=== PATIENT | female | born 1995 | race Caucasian/White ===

== ENCOUNTER → 2018-08-03 10:00 | Outpatient (CLI) | payer OTHER, SELFPAY | DX: Z23 Encounter for immunization (principal) | CPT/HCPCS: 90471; 90686 ==

== ENCOUNTER 2022-04-17 16:57 | Emergency (ER) | payer OTHER, SELFPAY ==
[2022-04-17 17:34] VITALS: BP 151/82; PULSE 82; RESP 15; TEMP 35.9; O2SAT 99; BMI 40.3
--- NOTE | 2022-04-17 19:30 | ED_ITS ---
HPI - Extremity Problem <Jim Flynn PA-C - Last Filed: 04/17/22 19:43> General Chief complaint: Extremity Problem,Nontraumatic Stated complaint: rt leg pain Time Seen by Provider: 04/17/22 19:11 Source: family Mode of arrival: Wheelchair History of Present Illness HPI Narrative: This is a 26-year-old female presenting to the emergency department due to pain acute on chronic lower back pain with radiation down her right lower extremity. States she feels numbness and tingling in the right lower extremity as well. Patient states that she has a known disc herniation at L4-5 that she has seen her primary care provider about. Patient states that she ?just needs something for the pain?. Denies any urinary or bowel incontinence, saddle paresthesias, or any other concerning signs or symptoms. Denies any acute injury states the pain is ?horrible?. Related Data Home Medications Medication Instructions Recorded Confirmed albuterol sulfate 90 mcg/actuation 2 puff INHALATION Q6H PRN 06/07/18 06/07/18 aerosol inhaler (ProAir HFA) lorazepam 0.5 mg tablet (Ativan) 0.5 mg PO BEDTIME PRN 06/07/18 06/07/18 sertraline 25 mg tablet (Zoloft) 25 mg PO DAILY 06/07/18 06/07/18 Previous Rx's Medication Instructions Recorded ondansetron 8 mg disintegrating 8 mg PO Q8H PRN #30 tab 06/07/18 tablet (Zofran ODT) methylprednisolone 4 mg tablets in 4 mg PO DAILY #21 ea 04/17/22 a dose pack Allergies Allergy/AdvReac Type Severity Reaction Status Date / Time ceftriaxone [From Rocephin] Allergy hives Verified 04/17/22 17:34 cephalexin [From Keflex] Allergy difficulty Verified 04/17/22 17:34 breathing doxycycline Allergy hives and Verified 04/17/22 17:34 itchy mouth Penicillins Allergy Anaphylaxis Verified 04/17/22 17:34 Review of Systems <Jim Flynn PA-C - Last Filed: 04/17/22 19:43> Review of Systems Narrative: GENERAL: Denies chills, fatigue, malaise, fever, sweats. HEENT: Denies sinus pain, ear pain, sore throat, difficulty swallowing, dizziness. RESPIRATORY: Denies dyspnea, cough, wheezing, hemoptysis, sputum. CARDIOVASCULAR: Denies chest pain, palpitations, orthopnea, edema, GASTROINTESTINAL: Denies nausea, vomiting, abdominal pain, diarrhea, constipation, melena. : Denies dysuria, frequency, incontinence, hematuria, urinary retention. MUSCULOSKELETAL: Back pain SKIN: Denies rash, skin lesions, or other NEUROLOGIC: Denies weakness, headache, numbness, change in speech, confusion, seizures, incoordination. PSYCHIATRIC: No concerning psychosocial issues. 12 point review of systems is negative except for those stated above Patient History <Jim Flynn PA-C - Last Filed: 04/17/22 19:43> Social History Smoking Status: Never smoker alcohol intake: current Smoking Status: Never smoker alcohol intake frequency: holidays/special occasions only Substance Use Type: does not use Exam <Jim Flynn PA-C - Last Filed: 04/17/22 19:43> Narrative Exam Narrative: GENERAL: Well-developed patient, in mild distress. HEAD: Atraumatic. Normocephalic. EYES: Pupils equal round and reactive. Extraocular motions intact. No scleral icterus. No injection or drainage. ENT: Nose without bleeding, purulent drainage. Throat without erythema, tonsillar hypertrophy or exudate. Airway patent. NECK: Trachea midline. Non tender CARDIOVASCULAR: Regular rate and rhythm without murmurs, gallops, or rubs. RESPIRATORY: Clear to auscultation. Breath sounds equal bilaterally. No wheezes, rales, or rhonchi. GASTROINTESTINAL: Abdomen soft, non-tender, nondistended. EXTREMITIES: No edema or joint tenderness. BACK: Tenderness to palpation to the right lumbar area NEURO: AOx3. SKIN: No rash or erythema of visible areas Initial Vital Signs Initial Vital Signs: Vital Signs Temperature 96.7 F L 04/17/22 17:34 Pulse Rate 82 04/17/22 17:34 Respiratory Rate 15 04/17/22 17:34 Blood Pressure 151/82 H 04/17/22 17:34 Pulse Oximetry 99 04/17/22 17:34 <Yesika Bryson DO - Last Filed: 04/18/22 04:02> Initial Vital Signs Initial Vital Signs: Vital Signs Temperature 96.7 F L 04/17/22 17:34 Pulse Rate 82 06/02/22 17:34 Respiratory Rate 15 04/17/22 17:34 Blood Pressure 151/82 H 04/17/22 17:34 Pulse Oximetry 99 04/17/22 17:34 Course <Jim Flynn PA-C - Last Filed: 04/17/22 19:43> Vital Signs Vital signs: Vital Signs - 8 hr 04/17/22 17:34 Temperature 96.7 F L Pulse Rate 82 Respiratory Rate 15 Blood Pressure 151/82 H Pulse Oximetry 99 <Yesika Bryson DO - Last Filed: 04/18/22 04:02> Vital Signs Vital signs: Vital Signs - 8 hr 04/17/22 17:34 Temperature 96.7 F L Pulse Rate 82 Respiratory Rate 15 Blood Pressure 151/82 H Pulse Oximetry 99 MDM - Extremity (Nontraumatic) <Jim Flynn PA-C - Last Filed: 04/17/22 19:43> MDM Narrative Medical decision making narrative: This is a 26-year-old female presents to the emergency department due to acute on chronic lower back pain secondary to a known L4-5 disc herniation. Patient did report some numbness and tingling in the right lower extremity and offered course of possible MRI for further evaluation for new changes but patient states that she would prefer to have the MRI performed through her primary care provider for insurance purposes. Patient states that she is already taking a large amount of ibuprofen and Tylenol [id number] and states that ?muscle relaxants do nothing for me. Toradol and a prescription for muscle relaxer declined patient was agreeable to a Medrol Dosepak for treatment until she is able follow-up with the primary care provider in 1 week. Patient states that she ?knows I need surgery? but is hesitant to pursue this route until she has ?better job security?. Discharge Plan Departure Patient Disposition: Home Clinical Impression: Low back pain radiating to right leg Instructions: Low Back Pain Activity Restrictions/Additional Instructions: Thank you for coming to the [facility] Emergency Department today. I am sorry that you are experiencing the back pain that you have been experiencing for some time. Please continue to use ibuprofen and Tylenol as recommended to help with your pain. Also recommend light stretching and light activity help loosen muscles. As we discussed you may qualify for MRI to your primary care provider due to your right leg numbness and tingling. I recommend you follow through with this route. The Medrol Dosepak may help with the symptoms into see them on Thursday. I hope you feel better soon. Prescriptions: New methylprednisolone 4 mg tablets,dose pack 4 mg PO DAILY Qty: 21 0RF No Action lorazepam [Ativan] 0.5 mg tablet 0.5 mg PO BEDTIME PRN0RF sertraline [Zoloft] 25 mg tablet 25 mg PO DAILY 0RF albuterol sulfate [ProAir HFA] 90 mcg/actuation HFA aerosol inhaler 2 puff INHALATION Q6H PRN0RF ondansetron [Zofran ODT] 8 mg tablet,disintegrating 8 mg PO Q8H PRN (Reason: nausea and vomiting) Qty: 30 0RF Visit Report Forms: Patient Portal/API <Yesika Bryson DO - Last Filed: 04/18/22 04:02> Cosign ED Attending Claudine Attestation: I was immediately available in the department for consultation. Documentation has been reviewed. I agree with assessment and plan.
--- NOTE | 2022-04-17 19:44 | PC.NURSE ---
pt states she has been diagnosed with herniated disc in L4 and L5 since Dec 2020. She knows she needs to have surgery, has appointment with Dr. Polk for this July (soonest available) also has appointment with her PCP next Thursday for pain control. Pt moved here from [place] and the driving and lifting of things has exacerbated her back pain and she now reports tingling and numbness down into her toes. Pt using icy-hot at home and lidocaine patches. she is hoping we can help manage her pain until her appt on thursday.
== END 2022-04-17 19:51 | disposition home or self-care (01) ==
PROVIDERS: Emergency Provider Physician Assistant Medical
DX: M54.50 Low back pain, unspecified (principal)
CPT/HCPCS: 99281

== ENCOUNTER → 2022-07-28 13:51 | Outpatient (CLI) | payer OTHER, SELFPAY ==
--- NOTE | 2022-07-28 13:52 | DI.RAD.S_ITS ---
PROCEDURE: XR LUMBAR SPINE MIN 4V INDICATIONS: BACK PAIN TECHNIQUE: 5 views of the lumbar spine were acquired, including bilateral oblique views. COMPARISON: None. FINDINGS: Bones: 5 nonrib-bearing vertebrae are present. There is significant levoscoliosis of thoracolumbar spine partially visualized on this study.. No vertebral body compression fractures. No suspicious bony lesions. Soft tissues: Overlying bowel gas pattern is normal. No suspicious soft tissue calcifications. Oblique images: No pars defects. IMPRESSION: Moderate levoscoliosis of thoracolumbar spine incompletely visualized on this study. No compression fracture or significant listhesis. No gross pars defects. Dictated by: Gopal Reed M.D. on 07/28/2022 at 16:03 Approved by: Gopal Reed M.D. on 07/28/2022 at 16:04
== END ==
PROVIDERS: PCP Student in an Organized Health Care Education/Training Program; Referring Provider Physical Medicine & Rehabilitation; Visit Provider Physical Medicine & Rehabilitation
DX: M54.9 Dorsalgia, unspecified (principal); M41.86 Other forms of scoliosis, lumbar region; M51.26 Other intervertebral disc displacement, lumbar region; M54.16 Radiculopathy, lumbar region; F40.298 Other specified phobia; E66.01 Morbid (severe) obesity due to excess calories; Z68.42 Body mass index [BMI] 45.0-49.9, adult
CPT/HCPCS: 72110; 99214

== ENCOUNTER 2022-08-28 13:49 | Outpatient (CLI) | payer OTHER, SELFPAY ==
[2022-08-28] VITALS (8 sets, daily range): BP systolic 134–172; BP diastolic 85–101; PULSE 87–111; RESP 14–24; TEMP 36.6; O2SAT 97–99
--- NOTE | 2022-08-28 13:52 | DI.RAD.S_ITS ---
PROCEDURE: PAIN L INTERLAMINAR/CAUDAL INJ INDICATIONS: SPONDYLOSIS COMPARISON: None. FINDINGS: Fluoroscopic spot filming was performed to verify placement of spinal needles at the L4-5 level(s), as labeled on the films. Appropriate location(s) of the needle tip(s) was confirmed by injection of iodinated contrast. IMPRESSION: Fluoro guidance was provided intraoperatively for right L4-5 translaminar epidural steroid injection performed by the ordering physician. Dictated by: Gopal Reed M.D. on 08/28/2022 at 16:42 Approved by: Gopal Reed M.D. on 08/28/2022 at 16:45
[2022-08-28] MEDS: MIDAZOLAM 2 MG/2 ML VIAL IV (14:14)
[2022-08-28] MEDS: IOPAMIDOL 15 ML VIAL 3 ML INJ (14:19)
[2022-08-28] MEDS: DEXAMETHASONE 10 MG/ML VIAL 20 MG INJ (14:19)
[2022-08-28] MEDS: BUPIVACAINE 0.25% (PF) VIAL 2 ML INJ (14:19)
[2022-08-28] MEDS: BETAMETHASONE 30 MG/5 ML MDV 6 MG INJ (14:21)
--- NOTE | 2022-08-28 14:31 | P.PCN_ITS ---
Date/Time/Diagnoses Date of procedure: 08/28/22 Time of procedure: 14:31 Pre-procedure diagnosis: 1. HNP WITH RADICULAR FEATURES, 2. MULTILEVEL CENTRAL STENOSIS, Post-procedure diagnosis: same Procedure Notes Procedure: 1. FLUOROSCOPICALLY GUIDED CONTRAST CONTROLLED INTERLAMINAR EPIDURAL STEROID INJECTION -L4/5 Indications: Lavon is referred by Dr. Mike for treatment of Bilateral Foraminal Stenosis R>L LE symptoms. Physician: Esteban Clark Total Fluoroscopy time (seconds): 6 Total sedation minutes: 9 Complications: none Procedure in detail & Post-procedure care: FINDINGS Multilevel Central Spinal Stenosis with Nerve Root Compression DESCRIPTION OF PROCEDURE Fluoroscopically guided, contrast-controlled L4/5 translaminar epidural steroid injection. Following review of allergy and review of potential side effects and complications, including, but not necessarily limited to, infection, allergic reaction, local tissue breakdown, temporary as well as permanent nerve injury, paralysis, stroke and possible , the patient indicated that the patient understood and agreed to proceed. An informed consent document was signed by the patient, witnessed by a nurse, and placed in the patient's chart. Additionally, other treatment options including modalities, medications, and physical therapy were reviewed with the patient. After review of previous anaesthesic history and IV conscious sedation the patient was deemed safe to proceed with today?s procedure with IV conscious sedation as ASA class II designation. Safety time-out was performed to confirm patient ID, procedure to be performed and site of procedure. IV sedation was accomplished with a combination of 2mg of Versed was administered by the RN after DO order, titrated to patient comfort during the course of the procedure while the patient remained responsive to all verbal commands In the prone position, following sterile prep and drape of the lumbar region, the L4/5 translaminar space was identified fluoroscopically. The skin was anesthetized via a 25-gauge, 1.5inch needle with 1% lidocaine solution. At this point, a 22-gauge short bevel spinal needle was atraumatically introduced and advanced under fluoroscopic guidance into the region of the L4/5 translaminar space. Depth was confirmed on lateral view. Radiological data, including multiple fluoroscopic views of the lumbar spine, reveal a spinal needle at the L4/5 translaminar space. Lateral views then show placement of the needle in the epidural space. Subsequent views show contrast material flowing superiorly and inferiorly in the epidural space. No vascular or intrathecal uptake is observed. At this point, using loss of resistance technique with saline and air, the epidural space was entered. This was confirmed following negative aspiration with injection of approximately 1.5cc of Isovue 200, showing excellent epidural flow without vascular or intrathecal uptake. At this point, 1cc of 1% lidocaine solution combined with 3cc or 20mg of dexamethasone and 6mg betamethasone was injected without incident. The patient tolerated the procedure well without signs or symptoms of complications prior to transfer to the recovery area continued monitoring without incident. The patient was then transferred to the recovery area where they were observed for an appropriate period of time after the injection. The patient reported a VAS score of 6 prior to the procedure and a post- procedure VAS of 0. POST OP INSTRUCTIONS The patient was provided a Pain Log to continue to record their response to the target-specific procedure prior to follow-up visit with their referring physician. Additionally, specific post-injection care instructions and a contact number to our office were provided if concerns arise regarding possible complications associated with the procedure are suspected.
== END 2022-08-28 14:47 | disposition home or self-care (01) ==
PROVIDERS: PCP Student in an Organized Health Care Education/Training Program; Referring Provider Physical Medicine & Rehabilitation; Visit Provider Physical Medicine & Rehabilitation
DX: M51.16 Intervertebral disc disorders with radiculopathy, lumbar region (principal); M48.061 Spinal stenosis, lumbar region without neurogenic claudication
CPT/HCPCS: 62323; J0702; J1100; J2250; J3490

== ENCOUNTER 2022-12-18 10:39 | Outpatient (CLI) | payer OTHER, SELFPAY ==
[2022-12-18] VITALS (9 sets, daily range): BP systolic 138–155; BP diastolic 77–110; PULSE 70–85; RESP 11–20; TEMP 36.3; O2SAT 98–100
--- NOTE | 2022-12-18 10:40 | DI.RAD.S_ITS ---
PROCEDURE: PAIN L/S TRANSFORAMINAL INJECT INDICATIONS: SPONDYLOSIS COMPARISON: [facility], XA, PAIN L INTERLAMINAR/CAUDAL INJ, 08/28/2022, 14:18. [facility], CR, XR LUMBAR SPINE MIN 4V, 07/28/2022, 14:01. [facility][1], RG, MRI L-SPINE W/O CONTRAST, 07/23/2022, 7:36. FINDINGS: Fluoroscopic spot filming was performed to verify placement of a spinal needle at the L4-L5 level, as labeled on the films. Appropriate location of the needle tip was confirmed by injection of iodinated contrast. IMPRESSION: Intraprocedural examination within normal limits. Dictated by: Mike Glez M.D. on 12/18/2022 at 11:47 Approved by: Mike Glez M.D. on 12/18/2022 at 11:48
[2022-12-18] MEDS: MIDAZOLAM 2 MG/2 ML VIAL IV (11:08)
[2022-12-18] MEDS: IOPAMIDOL 15 ML VIAL 3 ML INJ (11:14)
[2022-12-18] MEDS: BETAMETHASONE 30 MG/5 ML MDV 6 MG INJ (11:14)
[2022-12-18] MEDS: DEXAMETHASONE 10 MG/ML VIAL 20 MG INJ (11:15)
[2022-12-18] MEDS: BUPIVACAINE 0.25% (PF) VIAL 2 ML INJ (11:16)
--- NOTE | 2022-12-18 11:23 | P.PCN_ITS ---
Date/Time/Diagnoses Date of procedure: 12/18/22 Time of procedure: 11:23 Pre-procedure diagnosis: 1. FORAMINAL STENOSIS WITH LE SYMPTOMS Post-procedure diagnosis: same Procedure Notes Procedure: 1. FLUOROSCOPICALLY GUIDED CONTRAST CONTROLLED TRANSFORAMINAL EPIDURAL STEROID INJECTION - RIGHT L4/5 TFESI Indications: Jose Manuel is referred by Dr. Mike for treatment of Foraminal Stenosis with Right LE Symptoms Physician: Esteban Clark Total Fluoroscopy time (seconds): 12 Total sedation minutes: 13 Complications: none Procedure in detail & Post-procedure care: FINDINGS Foraminal Nerve Root Compression secondary to disc disease and facet hypertrophy DESCRIPTION OF PROCEDURE Following review of allergy and review of potential side effects and complications, including, but not necessarily limited to, infection, allergic reaction, local tissue breakdown, stroke, temporary or permanent nerve injury, paralysis, and possible , the patient indicated that the patient understood and agreed to proceed. An informed consent document was signed by the patient, witnessed by a nurse, and placed in the patient's chart. Additionally, other treatment options including medications, modalities, and physical therapy were reviewed with the patient. After review of previous anaesthesic history and IV conscious sedation the patient was deemed safe to proceed with today?s procedure with IV conscious sedation as ASA class II designation. Safety time-out was performed to confirm patient ID, procedure to be performed and site of procedure. IV sedation was accomplished with a combination of 2mg of Versed was administered by the RN after DO order, titrated to patient comfort during the course of the procedure while the patient remained responsive to all verbal commands In the prone position following sterile prep and drape of the lumbar region, the right L4/5 posterior neuroforamen was identified fluoroscopically. The skin was anesthetized via a 25-gauge 1.5-inch needle with 1% lidocaine solution. At this point, a 25-gauge 3.5-inch spinal needle was atraumatically introduced and advanced under fluoroscopic guidance through the posterior right L4/5 neuroforamen to approximately the anterior aspect of the canal. Depth was confirmed on lateral view. Following negative aspiration, injection of approximately 1.5cc of Isovue 200 under live fluoroscopy in the AP view confirmed excellent flow along the nerve root, into the epidural space without vascular or intrathecal uptake observed Radiological data, including multiple fluoroscopic views of the lumbosacral spine, reveal a spinal needle at the right L4/5 posterior neuroforamen. Subsequent views show flow of contrast material flowing superiorly and inferiorly along the nerve root confirming epidural flow. Subsequently, a test dose of 1.5 cc of 1% lidocaine solution was administered and patient was observed for two minutes for signs or symptoms of complications, including abdominal pain, shortness of breath, bilateral upper or lower extremity weakness, nausea and vomiting, prior to steroid injection. At this point, a total of 3cc or 20mg of dexamethasone and 6mg of betamethasone was injected without incident. The procedure tolerated the procedure well without signs or symptoms of complications prior to transfer to the recovery area continued monitoring without incident. The patient was then transferred to the recovery area where they were observed for an appropriate time after the injection. The patient reported a VAS score of 9 prior to the procedure and a post- procedure VAS of 2. POST OP INSTRUCTIONS The patient was provided a Pain Log to continue to record their response to the target-specific procedure prior to follow-up visit with their referring physician. Additionally, specific post-injection care instructions and a contact number to our office were provided if concerns arise regarding possible complications associated with the procedure are suspected.
== END 2022-12-18 11:46 | disposition home or self-care (01) ==
LOC: RAD 10:40
PROVIDERS: PCP Student in an Organized Health Care Education/Training Program; Referring Provider Physical Medicine & Rehabilitation; Visit Provider Physical Medicine & Rehabilitation
DX: M48.061 Spinal stenosis, lumbar region without neurogenic claudication (principal); M51.16 Intervertebral disc disorders with radiculopathy, lumbar region
CPT/HCPCS: 64483; 99152; J0702; J1100; J2250; J3490

== ENCOUNTER 2023-07-30 07:14 | Emergency (ER) | payer OTHER, SELFPAY ==
--- NOTE | 2023-07-30 07:17 | ED.GENADULT ---
HPI - General Adult General Chief complaint: Upper Respiratory Symptoms Stated complaint: upper resp Time Seen by Provider: 07/30/23 07:16 Source: patient Mode of arrival: Ambulatory Limitations: no limitations History of Present Illness HPI narrative: 27-year-old female who is here for evaluation of a cough. No fevers. Has nonproductive cough. No chest pain. No history of asthma. He was like she would benefit from a breathing treatment. Related Data Home Medications Medication Instructions Recorded Confirmed ondansetron 4 mg disintegrating 4 mg PO QID PRN nausea and vomiting 11/24/22 04/06/23 tablet escitalopram oxalate 10 mg tablet 10 mg PO DAILY 04/06/23 04/06/23 lamotrigine 200 mg tablet 200 mg PO BID 04/06/23 04/06/23 Previous Rx's Medication Instructions Recorded tramadol 50 mg tablet 50 mg PO BID PRN pain #42 tabs 04/09/23 methocarbamol 500 mg tablet 500 mg PO TID #60 tabs 07/14/23 albuterol sulfate 90 mcg/actuation 2 puff inhalation Q4-6H PRN 07/30/23 aerosol inhaler (ProAir HFA) shortness of breath or wheezing #8.5 grams benznidazole 100 mg tablet 100 mg PO BID #20 tabs 07/30/23 Allergies Allergy/AdvReac Type Severity Reaction Status Date / Time ceftriaxone [From Rocephin] Allergy hives Verified 04/06/23 13:46 cephalexin [From Keflex] Allergy difficulty Verified 04/06/23 13:46 breathing doxycycline Allergy hives and Verified 04/06/23 13:46 itchy mouth Penicillins Allergy Anaphylaxis Verified 04/06/23 13:46 nystatin AdvReac Rash Verified 07/30/23 07:40 Review of Systems Constitutional Constitutional: Reports system reviewed and no additional complaints, except as documented Cardiovascular Cardiovascular: Reports system reviewed and no additional complaints, except as documented Respiratory Respiratory: Reports system reviewed and no additional complaints, except as documented Gastrointestinal Gastrointestinal: Reports system reviewed and no additional complaints, except as documented Integumentary/Breasts Skin/Breast: Reports system reviewed and no additional complaints, except as documented Patient History Medical History Herniated nucleus pulposus, L4-5 Lumbar radiculopathy Morbid obesity due to excess calories Needle phobia Surgical History H/O hand surgery History of tonsillectomy Family History Father Diabetes mellitus Mother Depression Anxiety Thyroid disease Grandmother Cancer Social History Smoking Status: Never smoker alcohol intake: current Smoking Status: Never smoker alcohol intake frequency: holidays/special occasions only Substance Use Type: does not use Exam Initial Vital Signs Initial Vital Signs: Vital Signs Temperature 98.3 F 07/30/23 07:28 Pulse Rate 90 07/30/23 07:28 Respiratory Rate 26 H 07/30/23 07:28 Blood Pressure 120/87 07/30/23 07:28 Pulse Oximetry 99 07/30/23 07:28 Oxygen Delivery Method Room Air 07/30/23 07:28 Resp Effort & Inspection: not labored and no respiratory distress Auscultation: rhonchi and wheezes Cardio Rate: regular rate Skin General: no rashes or lesions noted Neuro General: patient alert, patient awake, patient oriented x3 and moves all extremities Course Orders Ordered: Discontinued Medications Albuterol (Albuterol 2.5 Mg/3 Ml Neb (Adult)) 5 mg INH NOW ONE Stop: 07/30/23 07:17 Last Admin: 07/30/23 07:27 Dose: 5 mg Documented By: MARITA Benzonatate (Benzonatate 100 Mg Capsule) 100 mg PO NOW ONE Stop: 07/30/23 07:20 Vital Signs Vital signs: Vital Signs - 8 hr 07/30/23 07:30 07/30/23 07:28 Temperature 98.3 F Pulse Rate 102 H 90 Respiratory Rate 20 26 H Blood Pressure 120/87 Pulse Oximetry 98 99 Oxygen Delivery Method Room Air Room Air Oxygen Flow Rate 0 Fraction of Inspired Oxygen 21 Medical Decision Making MDM Narrative Medical decision making narrative: Low suspicion for pneumonia. No indication for antibiotics. Feels much better after eating treatment. Will discharge patient home Discharge Plan Departure Patient Disposition: Home Clinical Impression: Cough, Upper respiratory infection Instructions: Cough Activity Restrictions/Additional Instructions: Use the albuterol as needed same with the Oleg Daniels. Contact your primary doctor for follow-up. Prescriptions: New albuterol sulfate [ProAir HFA] 90 mcg/actuation HFA aerosol inhaler 2 puff inhalation Q4-6H PRN (Reason: shortness of breath or wheezing) Qty: 8.5 0RF benznidazole 100 mg tablet 100 mg PO BID Qty: 20 0RF No Action tramadol 50 mg tablet 50 mg PO BID PRN (Reason: pain) Qty: 42 1RF methocarbamol 500 mg tablet 500 mg PO TID Qty: 60 2RF ondansetron 4 mg tablet,disintegrating 4 mg PO QID PRN (Reason: nausea and vomiting) Patient Comments: DISSOLVE ONE TABLET BY MOUTH EVERY 6 HOURS NEEDED lamotrigine 200 mg tablet 200 mg PO BID Patient Comments: TAKE 1 TABLET BY MOUTH TWICE DAILY escitalopram oxalate 10 mg tablet 10 mg PO DAILY Referrals: Rosemarie Mike MD [Primary Care Provider] - Stand Alone Forms: Patient Portal/API
[2023-07-30 07:21] VITALS: PULSE 95; O2SAT 100
[2023-07-30] MEDS: ALBUTEROL 2.5 MG/3 ML NEB (ADULT) 5 MG INH (07:27)
[2023-07-30 07:28] VITALS: BP 120/87; PULSE 90; RESP 26; TEMP 36.8; O2SAT 99; BMI 44.4
[2023-07-30 07:30] VITALS: PULSE 102; RESP 20; O2SAT 98
[2023-07-30] MEDS: BENZONATATE 100 MG CAPSULE PO (07:42)
[2023-07-30 07:44] VITALS: PULSE 109; O2SAT 100
--- NOTE | 2023-07-30 07:47 | PC.NURSE ---
Patient is coughing less and states a huge improvement from the breathing treatment.
[2023-07-30 07:55] VITALS: BP 148/85; PULSE 97; RESP 20; O2SAT 100
== END 2023-07-30 07:55 | disposition home or self-care (01) ==
PROVIDERS: Emergency Provider Emergency Medicine; PCP Student in an Organized Health Care Education/Training Program
DX: J06.9 Acute upper respiratory infection, unspecified (principal); R05.9 Cough, unspecified
CPT/HCPCS: 94640; 99283; J7613

== ENCOUNTER → 2023-07-31 19:24 | Outpatient (CLI) | payer OTHER, SELFPAY ==
--- NOTE | 2023-07-31 19:24 | DI.MRI.S_ITS ---
PROCEDURE: MR LUMBAR SPINE WO CON INDICATIONS: LUMBAR RADICULOPATHY TECHNIQUE: Noncontrast sagittal T1 spin echo and T2 fast echo, sagittal STIR, and T2 fast spin echo through the lumbar spine. In cases with scoliosis, additional coronal T2 fast spin echo may be performed. COMPARISON: [facility], RG, MRI L-SPINE W/O CONTRAST, 07/23/2022, 7:36. [facility], CR, XR LUMBAR SPINE MIN 4V, 07/28/2022, 14:01. FINDINGS: Image quality: Excellent. Alignment and Curvature: Levocurvature of the thoracolumbar spine, as before. Bone Marrow: Marrow is of normal overall signal. No acute vertebral body compression fractures. Spinal Cord: Conus medullaris terminates at the T12-L1 level. Visualized cord demonstrates normal signal and size. Paraspinous Soft Tissues: No paravertebral masses. T12-L1: Normal appearance. L1-L2: Normal appearance. L2-L3: Unchanged. Facet hypertrophy. No canal stenosis or foraminal stenosis. L3-L4: Unchanged. Facet hypertrophy. No canal stenosis or foraminal stenosis. L4-L5: Interval progression of findings. Development of a superimposed relatively acute right paracentral disc extrusion superimposed on a broad-based right posterior lateral disc protrusion. Disc protrusion plus extrusion combined measure approximately 1.9 x 2.4 x 0.9 cm. There is severe impingement on the thecal sac. Findings are eccentric to the right. There is dext-[id number]-[id number] bilateral foraminal narrowing. There is bilateral facet hypertrophy. L5-S1: Unchanged. Bilateral facet hypertrophy. Disc bulge. No canal stenosis or foraminal stenosis. IMPRESSION: 1. Significant progression of findings at L4-L5. There is a large, relatively acute right paracentral disc extrusion superimposed on a broad-based right posterior lateral disc protrusion. There is severe impingement on the thecal sac, eccentric to the right. 2. Multilevel facet arthropathy. Dictated by: Guilherme Mehta M.D. on 08/03/2023 at 10:45 Approved by: Guilherme Mehta M.D. on 08/03/2023 at 11:16
== END ==
PROVIDERS: PCP Student in an Organized Health Care Education/Training Program; Referring Provider Physician Assistant Surgical; Visit Provider Physician Assistant Surgical
DX: M51.16 Intervertebral disc disorders with radiculopathy, lumbar region (principal); M47.26 Other spondylosis with radiculopathy, lumbar region; M47.27 Other spondylosis with radiculopathy, lumbosacral region; S39.012A Strain of muscle, fascia and tendon of lower back, initial encounter
CPT/HCPCS: 72148

== ENCOUNTER → 2023-09-03 | Outpatient (CLI) | payer OTHER, SELFPAY | PROVIDERS: PCP Student in an Organized Health Care Education/Training Program; Referring Provider Family Medicine; Visit Provider Family Medicine | DX: Z23 Encounter for immunization (principal) | CPT/HCPCS: 90471; 90686 ==

== ENCOUNTER 2023-09-24 12:43 | Outpatient (CLI) | payer OTHER, SELFPAY ==
[2023-09-24] VITALS (8 sets, daily range): BP systolic 141–183; BP diastolic 72–99; PULSE 66–94; RESP 11–25; TEMP 36.8; O2SAT 97–100
--- NOTE | 2023-09-24 13:07 | DI.RAD.S_ITS ---
PROCEDURE: PAIN L/S TRANSFORAMINAL INJECT INDICATIONS: SPONDYLOSIS COMPARISON: [facility], , PAIN L/S TRANSFORAMINAL INJECT, 12/18/2022, 12:12. FINDINGS: Fluoroscopic spot filming was performed to verify placement of spinal needles at the left L4-L5 neural foramen level(s), as labeled on the films. Appropriate location(s) of the needle tip(s) was confirmed by injection of iodinated contrast. IMPRESSION: Access needle at the left L4-L5 neural foramen for transforaminal epidural steroid injection. Dictated by: Genna Larios MD, PhD on 09/24/2023 at 14:03 Approved by: Genna Larios MD, PhD on 09/24/2023 at 14:03
[2023-09-24] MEDS: MIDAZOLAM 2 MG/2 ML VIAL IV (13:09)
[2023-09-24] MEDS: BUPIVACAINE 0.25% (PF) VIAL 2 ML INJ (13:15)
[2023-09-24] MEDS: BETAMETHASONE 30 MG/5 ML MDV 6 MG INJ (13:16)
[2023-09-24] MEDS: DEXAMETHASONE 10 MG/ML VIAL INJ (13:16)
[2023-09-24] MEDS: iopamidoL 15 ML VIAL 3 ML INJ (13:17)
--- NOTE | 2023-09-24 13:28 | P.PCN_ITS ---
Date/Time/Diagnoses Date of procedure: 09/24/23 Time of procedure: 13:28 Pre-procedure diagnosis: 1. FORAMINAL STENOSIS WITH LE SYMPTOMS Post-procedure diagnosis: same Procedure Notes Procedure: 1. FLUOROSCOPICALLY GUIDED CONTRAST CONTROLLED TRANSFORAMINAL EPIDURAL STEROID INJECTION - LEFT L4/5 Indications: Lvaon is referred by Dr. Mike for treatment of Foraminal Stenosis with Left LE Symptoms Physician: Esteban Clark Total Fluoroscopy time (seconds): 14 Total sedation minutes: 15 Complications: none Procedure in detail & Post-procedure care: FINDINGS Foraminal Nerve Root Compression secondary to disc disease and facet hypertrophy DESCRIPTION OF PROCEDURE Following review of allergy and review of potential side effects and complications, including, but not necessarily limited to, infection, allergic reaction, local tissue breakdown, stroke, temporary or permanent nerve injury, paralysis, and possible , the patient indicated that the patient understood and agreed to proceed. An informed consent document was signed by the patient, witnessed by a nurse, and placed in the patient's chart. Additionally, other treatment options including medications, modalities, and physical therapy were reviewed with the patient. After review of previous anaesthesic history and IV conscious sedation the patient was deemed safe to proceed with today?s procedure with IV conscious sedation as ASA class II designation. Safety time-out was performed to confirm patient ID, procedure to be performed and site of procedure. IV sedation was accomplished with a combination of 2mg of Versed and 50mcg of Fentanyl administered by the RN after DO order, titrated to patient comfort during the course of the procedure while the patient remained responsive to all verbal commands In the prone position following sterile prep and drape of the lumbar region, the left L4/5 posterior neuroforamen was identified fluoroscopically. The skin was anesthetized via a 25-gauge 1.5-inch needle with 1% lidocaine solution. At this point, a 22-gauge 5-inch spinal needle was atraumatically introduced and advanced under fluoroscopic guidance through the posterior left L4/5 neuroforamen to approximately the anterior aspect of the canal. Depth was confirmed on lateral view. Following negative aspiration, injection of approximately 1.5 cc of Isovue 200 under live fluoroscopy in the AP view confirmed excellent flow along the nerve root, into the epidural space without vascular or intrathecal uptake observed Radiological data, including multiple fluoroscopic views of the lumbosacral spine, reveal a spinal needle at the left L4/5 posterior neuroforamen. Subsequent views show flow of contrast material flowing superiorly and inferiorly along the nerve root confirming epidural flow. Subsequently, a test dose of 1.5 cc of 1% lidocaine solution was administered and patient was observed for two minutes for signs or symptoms of complications, including abdominal pain, shortness of breath, bilateral upper or lower extremity weakness, nausea and vomiting, prior to steroid injection. At this point, a total of 2cc or 10mg of dexamethasone and 6mg of betamethasone was injected without incident. The procedure tolerated the procedure well without signs or symptoms of complications prior to transfer to the recovery area continued monitoring without incident. The patient was then transferred to the recovery area where they were observed for an appropriate time after the injection. The patient reported a VAS score of 8 prior to the procedure and a post- procedure VAS of 1. POST OP INSTRUCTIONS The patient was provided a Pain Log to continue to record their response to the target-specific procedure prior to follow-up visit with their referring physician. Additionally, specific post-injection care instructions and a contact number to our office were provided if concerns arise regarding possible complications associated with the procedure are suspected.
== END 2023-09-24 13:45 | disposition home or self-care (01) ==
LOC: RAD 12:44
PROVIDERS: PCP Student in an Organized Health Care Education/Training Program; Referring Provider Physical Medicine & Rehabilitation; Visit Provider Physical Medicine & Rehabilitation
DX: M48.061 Spinal stenosis, lumbar region without neurogenic claudication (principal); M51.16 Intervertebral disc disorders with radiculopathy, lumbar region; M47.26 Other spondylosis with radiculopathy, lumbar region
CPT/HCPCS: 64483; 99152; J0702; J1100; J2250; J3490

== ENCOUNTER 2024-08-08 05:12 | Emergency (ER) | payer OTHER, SELFPAY ==
[2024-08-08 05:23] VITALS: BP 141/85; PULSE 89; RESP 22; TEMP 36.7; O2SAT 98
--- NOTE | 2024-08-08 05:28 | ED_ITS ---
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 this morning, Ativan was drawn up in syringe for administration patient who was agitated, the Ativan medication scored up into the air and into the right eye of the patient, no needle or blunt trauma, subsequent burning sensation to the right eye, rinsed at ocular rinse workstation. Still having tearing and discomfort to the right eye. No contacts worn. Glasses usually were worn by taken off so they would not be damaged by agitated patient. No other injuries. Related Data Home Medications Medication Instructions Recorded Confirmed ondansetron 4 mg disintegrating 4 mg PO QID PRN nausea and vomiting 11/24/22 0 12/21/23 tablet lamotrigine 200 mg tablet 200 mg PO BID 04/06/23 12/21/23 metformin 500 mg tablet,extended 500 mg PO DAILY 12/21/23 12/21/23 release 24 hr Previous Rx's Medication Instructions Recorded tramadol 50 mg tablet 50 mg PO BID PRN pain #42 tabs 04/09/23 methocarbamol 500 mg tablet 500 mg PO TID #60 tabs 07/14/23 Allergies Allergy/AdvReac Type Severity Reaction Status Date / Time ceftriaxone [From Rocephin] Allergy hives Verified 12/21/23 10:44 cephalexin [From Keflex] Allergy difficulty Verified 12/21/23 10:44 breathing doxycycline Allergy hives and Verified 12/21/23 10:44 itchy mouth Penicillins Allergy Anaphylaxis Verified 12/21/23 10:44 nystatin AdvReac Rash Verified 12/21/23 10:44 Review of Systems Review of Systems Narrative: see HPI Patient History Medical History Morbid obesity due to excess calories Needle phobia Lumbar radiculopathy Herniated nucleus pulposus, L4-5 Surgical History H/O hand surgery History of tonsillectomy Family History Father Diabetes mellitus Mother Depression Anxiety Thyroid disease Grandmother Cancer Social History Smoking Status: Never smoker alcohol intake: current Smoking Status: Never smoker alcohol intake frequency: holidays/special occasions only Substance Use Type: does not use Exam Narrative Exam Narrative: GENERAL: Well-developed patient, in mild distress. HEAD: Atraumatic. Normocephalic. EYES: Pupils equal round and reactive. Extraocular motions intact. No scleral icterus. Right scleral injection. No urticarial reaction or swelling to upper and lower lids. Fluorescein exam after proparacaine right eye, no obvious foreign bodies, no corneal abrasion, no scleral abrasion. ENT: Nose without bleeding, purulent drainage. Throat without erythema, tonsillar hypertrophy or exudate. Airway patent. NECK: Trachea midline. Non tender CARDIOVASCULAR: Regular rate and rhythm without murmurs, gallops, or rubs. RESPIRATORY: Clear to auscultation. Breath sounds equal bilaterally. No wheezes, rales, or rhonchi. GASTROINTESTINAL: Abdomen soft, non-tender, nondistended. EXTREMITIES: No edema or joint tenderness. BACK: Nontender without deformity or crepitance. No flank tenderness. NEURO: AOx3. Motor functions grossly nonfocal SKIN: No rash or erythema of visible areas Initial Vital Signs Initial Vital Signs: Vital Signs Temperature 98.1 F 08/08/24 05:23 Pulse Rate 89 08/08/24 05:23 Respiratory Rate 22 08/08/24 05:23 Blood Pressure 141/85 H 08/08/24 05:23 Pulse Oximetry 98 08/08/24 05:23 Oxygen Delivery Method Room Air 08/08/24 05:23 Course Orders Ordered: Discontinued Medications Erythromycin (Erythromycin Ophth 1 Gm Oint) 1 applic EYE-RIGHT NOW ONE Stop: 08/08/24 06:03 Last Admin: 08/08/24 06:15 Dose: 1 applic Documented By: Fluorescein Sodium (Fluorescein 1 Mg Strip) 1 mg EYE-RIGHT NOW ONE Stop: 08/08/24 05:28 Last Admin: 08/08/24 05:35 Dose: 1 mg Documented By: Proparacaine HCl (Proparacaine 0.5% Ophth Karely) 4 drops EYE-RIGHT NOW ONE Stop: 08/08/24 05:29 Last Admin: 08/08/24 05:35 Dose: 1 drops Documented By: Vital Signs Vital signs: Vital Signs - 8 hr 08/08/24 05:23 Temperature 98.1 F Pulse Rate 89 Respiratory Rate 22 Blood Pressure 141/85 H Pulse Oximetry 98 Oxygen Delivery Method Room Air MDM - Eye Problem MDM Narrative Medical decision making narrative: 28-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 See nursing visual acuity. Fluorescein after proparacaine exam with Wood's lamp showed no obvious foreign bodies, no uptake corneal or scleral. Topical erythromycin ointment. Follow up with eye clinic advised later today Thursday during regular open hours. Tylenol as needed for pain control. Discharge Plan Departure Patient Disposition: Home Clinical Impression: Acute chemical conjunctivitis Activity Restrictions/Additional Instructions: Ativan liquid injectable medication chemical exposure in work environment proximally 3 hours ago, persisting right eye discomfort, no penetrating/blunt needle or syringe trauma, chemical in nature only. Fluorescein exam after proparacaine, no obvious foreign body, no obvious corneal abrasion, no obvious scleral abrasion. Normal saline irrigation 1 L. erythromycin topical antibiotic ointment 1st dose in ED, then 3 times daily. Recheck with eye clinic later today. Return earlier to this/nearest emergency department for any change worsening symptoms or any concerns Prescriptions: No Action tramadol 50 mg tablet 50 mg PO BID PRN (Reason: pain) Qty: 42 1RF methocarbamol 500 mg tablet 500 mg PO TID Qty: 60 2RF ondansetron 4 mg tablet,disintegrating 4 mg PO QID PRN (Reason: nausea and vomiting) Patient Comments: DISSOLVE ONE TABLET BY MOUTH EVERY 6 HOURS NEEDED lamotrigine 200 mg tablet 200 mg PO BID Patient Comments: TAKE 1 TABLET BY MOUTH TWICE DAILY metformin 500 mg tablet extended release 24 hr 500 mg PO DAILY Referrals: Rosemarie Mike MD [Primary Care Provider] - Stand Alone Forms: Patient Portal/API
[2024-08-08] MEDS: FLUORESCEIN 1 MG STRIP EYE-RIGHT (05:35)
[2024-08-08] MEDS: PROPARACAINE 0.5% OPHTH SOL 4 DROPS EYE-RIGHT (05:35)
[2024-08-08] MEDS: ERYTHROMYCIN OPHTH 1 GM OINT 1 APPLIC EYE-RIGHT (06:15)
[2024-08-08 06:16] VITALS: BP 144/97; PULSE 85; RESP 18; TEMP 36.9; O2SAT 99
== END 2024-08-08 06:16 | disposition home or self-care (01) ==
PROVIDERS: Emergency Provider Emergency Medicine; PCP Student in an Organized Health Care Education/Training Program
DX: H10.211 Acute toxic conjunctivitis, right eye (principal)
CPT/HCPCS: 99282

== ENCOUNTER → 2024-08-24 16:26 | Outpatient (CLI) | payer OTHER, SELFPAY | PROVIDERS: PCP Student in an Organized Health Care Education/Training Program; Referring Provider Internal Medicine; Visit Provider Internal Medicine | DX: Z23 Encounter for immunization (principal) | CPT/HCPCS: 90471; 90656 ==

== ENCOUNTER 2025-02-24 07:15 | Observation (INO) | payer OTHER, SELFPAY ==
--- NOTE | 2025-02-24 08:05 | P.TNLD_ITS ---
Visit Information Visit Information Date of evaluation: 02/24/25 On-call OB Provider: Anastasia Livingston Reason for Evaluation: Yes other Comments/Additional reasons for admission: This is a 29 yo G1 at 29w5d here for eval of vomiting, diarrhea, and abdominal crampiness. Normally follows with midwifery grmaryp at [facility]. 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 She reports contact with cdiff and norovirus patients. She says vomiting and diarrhea started last night, has not been able to keep anything down since 1am this morning. is complicated by class 3 obesity, chronic hypertension, fatty liver disease, mood disorder and chronic GI issues including chronic nausea. Vital Signs Vital Signs: BP 138/79, Pulse 108 PFSH Medical History Morbid obesity due to excess calories Needle phobia Lumbar radiculopathy Herniated nucleus pulposus, L4-5 Surgical History H/O hand surgery History of tonsillectomy Family History Father Diabetes mellitus Mother Depression Anxiety Thyroid disease Grandmother Cancer Social History Smoking Status: Never smoker alcohol intake: current Review of Systems Review of Systems ROS: Yes All systems reviewed with the patient and are negative except as otherwise documented Objective Labs 02/24/25 08:25 02/24/25 12:52 Evaluation Evaluation Baseline heart rate: 150 Variability: Average (6-10) monitor accelerations: Present Monitor Decelerations: Absent Category of Tracing: Reactive Diagnosis, Plan/Disposition Plan/Disposition Plan: 29 yo G1 at 29w5d here with confirmed norovirus on fecal sample. Recieved IV zofran and 1L bolus with good resposne. complicated by cHTN. CBC without abnormalities. CMP with slight elevation in LFTs. Discussed with MFM at , recommend repeat in 4 hours and if minimal elevation, fu in 3 days after weekend with primary OB provider. Repeat CMP with minimal elevation (AST 39, ALT 37). -discussed need for fu in 3 days for repeat labs -pre-eclampsia precautions given -continue labetalol 100 mg BID for hypertension OB Disposition: home
[2025-02-24] MEDS: ONDANSETRON 4 MG/2 ML INJ IV ×2 (08:45→13:25)
[2025-02-24] MEDS: LACTATED RINGERS 1,000 ML 125 ML IV (08:45)
[2025-02-24 09:25] LABS: Add Manual Diff / Slide Review NO; Alanine Aminotransferase 35 IU/L (<35); Albumin 3.6 g/dL (3.5-5.0); Albumin Globulin Ratio 1.2 (1.0-2.8); Alkaline Phosphatase 130 U/L (38-126); Aspartate Aminotransferase 37 IU/L (14-36); BUN Creatinine Ratio 16.4 (6-22); Basophils Absolute Auto 100 /uL (0-100); Basophils Percent Auto 0.4 % (0-2); Bilirubin Total 0.7 mg/dL (0.2-1.3); Blood Urea Nitrogen 9 mg/dL (7-17); Calcium 9.1 mg/dL (8.4-10.2); Carbon Dioxide 21 mmol/L (22-32); Chloride 105 mmol/L (98-107); Eosinophils Absolute Auto 200 /uL (0-450); Eosinophils Percent Auto 1.1 % (2-4); Estimated Glomerular Filt Rate > 60 mL/min (>60); Glucose 95 mg/dL (70-100); HEMOLYSIS < 15 (0-50); Hemoglobin 11.7 g/dL (12.0-16.0); Lymphocytes Absolute Auto 1200 /uL (1100-4500); Lymphocytes Percent Auto 7.8 % (25-40); Mean Corpuscular HGB Conc 32.5 % (30-36); Mean Corpuscular Hemoglobin 28.5 PG (26-34); Mean Corpuscular Volume 87.8 fL (80-100); Monocytes Absolute Auto 500 /uL (0-900); Monocytes Percent Auto 3.7 % (3-14); Neutrophils Absolute Auto 12900 /uL (1500-7000); Platelet Count 414 X10^3/uL (150-400); Red Cell Distribution Width 13.3 % (11.6-14.8); Sodium 134 mmol/L (137-145); Total Protein 6.6 g/dL (6.3-8.2); White Blood Cell Count 14.8 X10^3/uL (4.5-11.0)
[2025-02-24 09:36] VITALS: BP 138/79; PULSE 108
[2025-02-24] MEDS: lamoTRIgine 100 MG TABLET 200 MG PO (09:36)
[2025-02-24] MEDS: LABETALOL 100 MG TABLET PO (09:36)
[2025-02-24 10:56] LABS: Clostridium Difficile Tox PCR Negative for C. diff (Negative)
[2025-02-24 12:23] LABS: Adenovirus F 40/41 Not Detected (Not Detect); Astrovirus Not Detected (Not Detect); Campylobacter Not Detected (Not Detect); Clostridium difficile toxin AB Not Detected (Not Detect); Cryptosporidium Not Detected (Not Detect); Cyclospora cayetanensis Not Detected (Not Detect); Entamoeba histolytica Not Detected (Not Detect); Enteroaggregative E.coli Not Detected (Not Detect); Enteropathogenic E.coli Not Detected (Not Detect); Enterotoxigenic E.coli It/st Not Detected (Not Detect); Giardia lamblia Not Detected (Not Detect); Norovirus GI/GII Detected (Not Detect); Plesiomonsa shigelloides Not Detected (Not Detect); Rotavirus A Not Detected (Not Detect); Salmonella Not Detected (Not Detect); Sapovirus Not Detected (Not Detect); Shiga-like toxin-prod E.coli Not Detected (Not Detect); Shigella/Enteroinvasive E.coli Not Detected (Not Detect); Vibrio Not Detected (Not Detect); Vibrio cholerae Not Detected (Not Detect); Yersinia enterocolitica Not Detected (Not Detect)
[2025-02-24 13:10] LABS: Alanine Aminotransferase 37 IU/L (<35); Albumin 3.4 g/dL (3.5-5.0); Albumin Globulin Ratio 1.1 (1.0-2.8); Alkaline Phosphatase 125 U/L (38-126); Aspartate Aminotransferase 39 IU/L (14-36); BUN Creatinine Ratio 15.1 (6-22); Bilirubin Total 0.8 mg/dL (0.2-1.3); Blood Urea Nitrogen 8 mg/dL (7-17); Calcium 8.9 mg/dL (8.4-10.2); Carbon Dioxide 20 mmol/L (22-32); Chloride 106 mmol/L (98-107); Estimated Glomerular Filt Rate > 60 mL/min (>60); Globulin 3.2 g/dL (1.7-4.1); Glucose 107 mg/dL (70-100); HEMOLYSIS < 15 (0-50); Sodium 135 mmol/L (137-145); Total Protein 6.6 g/dL (6.3-8.2)
== END 2025-02-24 15:22 | disposition home or self-care (01) ==
PROVIDERS: Student in an Organized Health Care Education/Training Program; Admitting Provider Family Medicine; PCP Student in an Organized Health Care Education/Training Program; Referring Provider Family Medicine; Visit Provider Family Medicine
DX: O98.513 Other viral diseases complicating pregnancy, third trimester (principal); A08.11 Acute gastroenteropathy due to Norwalk agent; O99.213 Obesity complicating pregnancy, third trimester; E66.813 Obesity, class 3; O13.3 Gestational [pregnancy-induced] hypertension without significant proteinuria, third trimester; Z3A.29 29 weeks gestation of pregnancy
CPT/HCPCS: 36415; 59025; 59050; 80053; 85025; 87493; 87507; 96360; 96361; G0378; G0379; J2405